=== PATIENT | female | born 1970 | race Caucasian/White ===

== ENCOUNTER 2016-06-12 12:48 | Emergency (ER) | payer BC, OTHER ==
[2016-06-12 14:20] VITALS: BP 156/78
[2016-06-12] MEDS ORDERED: DIPHTH,PERTUSS(ACELL),TET VAC 0.5 ML VIAL IM ONE ×2 (15:23→15:36)
--- NOTE | 2016-06-12 15:53 | ERNOTE ---
Medical Problem HPI - Narrative Date of Service: 06/12/16 - General Chief Complaint: Laceration Source: patient Exam Limitations: no limitations - Immun/Allergies/Home Medications Immunizations: IMMUNIZATION HX Immunizations Up to Date No History of Influenza Vaccine No Hx Pneumococcal Vaccination No Allergies/Adverse Reactions: Allergies Sulfa (Sulfonamide Antibiotics) Allergy (Mild, Verified 05/11/15 21:15) Hives Home Medications: HOME MEDICATIONS Levothyroxine Sodium [Synthroid] 75 mcg PO DAILY 07/13/14 [Last Taken Unknown] ALPRAZolam [Xanax] 0.5 mg PO Q8H PRN 04/19/15 [Last Taken Unknown] Minocycline HCl [Minocin] 100 mg PO Q12H PRN 04/19/15 [Last Taken Unknown] Multivitamins [Multivitamin Maggie] 1 cap PO DAILY 04/19/15 [Last Taken Unknown] Ibuprofen [Motrin] 600 mg PO Q6H PRN 05/11/15 [Last Taken Unknown] - History of Present History Narrative: Pt. comes in with L ring finger tip laceration that she obtained while making dinner yesterday. Pt. states that the bleeding stopped right away but if she bumps it it will start bleeding again. Pt. denies any numbness or tingling and knows that it has been more than ten years since her last tetanus. Review of Systems - Review of Systems Constitutional: Present: no symptoms reported EYE: Present: no symptoms reported ENT: Present: no symptoms reported Respiratory: Present: no symptoms reported. Absent: shortness of breath, cough , wheezing Cardiology: Present: no symptoms reported. Absent: chest pain, palpitations, edema Gastrointestinal/Abdominal: Present: no symptoms reported Genitourinary: Present: no symptoms reported Musculoskeletal: Present: no symptoms reported Skin: Present: other - laceration L ring fingertip Neurological: Present: no symptoms reported All Other Systems: All systems neg except as marked - Patient's Past Medical History Patient History - Medical: Anxiety, Hypothyroidism Patient History - Cancer: No Hx of Cancer Patient History - Surgical Procedures: Cholecystectomy, Colonoscopy, , D & C, EGD, T & A, Other - Family History Mother Family History - Medical: Seizures Family History - Cardiac/Respiratory: Hypertension Father Family History - Medical: Diabetes Type 2 Family History - Cardiac/Respiratory: Hypertension - Social History Living Situations: home Smoking Status: Never smoker Alcohol Use: none Drug Use: none Physical Exam - Physical Exam General Appearance: Present: wd/wn, alert, no apparent distress Eye Exam: Normal inspection: bilateral, PERRL: bilateral, EOMI: bilateral Neck: Present: normal inspection Respiratory: Present: no respiratory distress, normal breath sounds, no accessory muscle use, chest nontender, lungs clear Cardiovascular/Chest: Present: regular rate, rhythm, no murmur, normal peripheral pulses Back Exam: Present: normal inspection Extremity Exam: Present: non-tender, no edema, normal range of motion, other - 3mm in diameter round full thikness laceration with 100% granulation tissue ED Progress - Date and Time Seen: Date and Time: 06/13/16 14:04 Since no closure is necessary to promote quick tissue healing and decrease microbial load will have pt. dress with xeroform until hard granulation web formed. - Vital Signs Patient's Vital Signs:: I have reviewed the patient's vital signs. Vital Signs: Vital Signs 06/12/16 14:09 Temperature 36.7 C Pulse Rate 66 Respiratory 18 Rate Blood Pressure 156/78 O2 Sat by Pulse 98 Oximetry - Progress/Reassessment Chief Complaint: Laceration Progress:: Unchanged Departure - Departure Clinical Impression: Laceration Disposition: Home self-care Condition: Good Instructions: Laceration Care, Adult, [id number] Additional Instructions: Please use xeroform gauze for dressing changes over the next two days then switch to neosporin and regular bandage. Please keep clean and dry. Referrals: Shreya Zarco MD [Primary Care Provider] -
== END 2016-06-12 16:12 | disposition home or self-care (01) ==
LOC: ER 12:48
DX: S61.215A Laceration without foreign body of left ring finger without damage to nail, initial encounter (principal); Z90.49 Acquired absence of other specified parts of digestive tract; E03.9 Hypothyroidism, unspecified; F41.1 Generalized anxiety disorder; Z23 Encounter for immunization; Y93.G9 Activity, other involving cooking and grilling

== ENCOUNTER 2017-02-26 00:28 | Emergency (ER) | payer BC, OTHER ==
[2017-02-26] MEDS ORDERED: METHYLPREDNISOLONE SOD SUCC/PF 125 MG/2 ML VIAL IV ONE (00:35)
[2017-02-26] MEDS ORDERED: diphenhydrAMINE HCL 50 MG/ML VIAL IV ONE (00:35)
[2017-02-26] MEDS ORDERED: FAMOTIDINE 10 MG/ML VIAL IV ONE (00:35)
--- NOTE | 2017-02-26 00:42 | ERNOTE ---
Allergy Symptoms - ER Presenting Symptoms: face swelling - / tongue swelling, skin rash, itching Time Seen by Provider: 02/26/17 00:35 Source: patient Exam Limitations: no limitations Immunizations: IMMUNIZATION HX Immunizations Up to Date No History of Influenza Vaccine No Hx Pneumococcal Vaccination No Allergies/Adverse Reactions: Allergies Sulfa (Sulfonamide Antibiotics) Allergy (Mild, Verified 02/26/17 00:31) Hives Home Medications: HOME MEDICATIONS Levothyroxine Sodium [Synthroid] 75 mcg PO DAILY 07/13/14 [Last Taken Unknown] Minocycline HCl [Minocin] 100 mg PO Q12H PRN 04/19/15 [Last Taken Unknown] Multivitamins [Multivitamin Maggie] 1 cap PO DAILY 04/19/15 [Last Taken Unknown] Ibuprofen [Motrin] 600 mg PO Q6H PRN 05/11/15 [Last Taken Unknown] Methylprednisolone [Medrol Dosepak] 4 mg PO DAILY #21 tab.ds.pk 02/26/17 [Last Taken Unknown] - History of Present Illness Narrative: Pt states she went to bed as normal and woke up around 23:00 with itching. She continued to worsen with swelling of her lips and hives and presented to the ED. Timing: Present: getting worse Location skin rash/itching: Present: facial, trunk, extremities, "hives" Location swelling: Present: lip(s) Severity shortness of breath: Present: mild Identified cause?: No Exposure: Present: antibiotic - Minocycline Similar symptoms previously: No Review of Systems - Review of Systems Constitutional: Absent: recent illness, fever, chills EYE: Present: no symptoms reported ENT: Present: throat swelling Respiratory: Present: shortness of breath - mild Cardiology: Present: no symptoms reported Gastrointestinal/Abdominal: Present: no symptoms reported Genitourinary: Present: no symptoms reported Musculoskeletal: Present: no symptoms reported Skin: Present: rash Neurological: Present: no symptoms reported Endocrine: Present: no symptoms reported Hematologic/Lymphatic: Present: no symptoms reported Psych: Present: no symptoms reported - Patient's Past Medical History Patient History - Medical: Anxiety, Hypothyroidism Patient History - Cardiac/Respiratory: No pertinent hx Patient History - Cancer: No Hx of Cancer Patient History - Surgical Procedures: Cholecystectomy, Colonoscopy, , D & C, EGD, T & A, Other Patient History - Other: None LMP (Calendar): 04/17/15 - Family History Mother Family History - Medical: Seizures Family History - Cardiac/Respiratory: Hypertension Father Family History - Medical: Diabetes Type 2 Family History - Cardiac/Respiratory: Hypertension - Social History Living Situations: home Abuse History: No History of abuse Psych History: Hx of Anxiety, Current tx/ever been on anti-depressants or anti- anxiety meds Alcohol Use: none Drug Use: none - Immunizations Immunizations Up to Date: No Hx Pneumococcal Vaccination: No History of Influenza Vaccine: No Physical Exam - Physical Exam General Appearance: Present: wd/wn, alert, mild distress, anxious Head Exam: Present: normal inspection, no evidence of injury Eye Exam: Normal inspection: bilateral, PERRL: bilateral Ears, Nose, Throat: Present: normal pharynx, other - lower lip swelling Neck: Present: normal inspection, nontender Respiratory: Present: no respiratory distress, no accessory muscle use, other - rough lung sounds throughout without wheezing Cardiovascular/Chest: Present: regular rate, rhythm, no murmur, normal peripheral pulses Extremity Exam: Present: non-tender, normal range of motion, no edema Neurological Exam: Present: alert, oriented, normal mood/affect Skin Exam: Present: other - hives on abdomen arms and legs, flushing and papules on face Lymphatic Exam: Present: no adenopathy ED Progress - Progress/Reassessment Progress:: Improved Progress Note-Subjective: 02/26/17 01:02 Pt states she is doing better. Tongue feels smaller. PE: hives on arms resolved papules reduced but remain. Hives on abdomen are less severe but persist. 02/26/17 02:00 Feeling much better. A little thickness to her tongue and that is all that remains. Discussed benadryl and drowsyness. Pt feels she is not drowsy at this time. Departure Clinical Impression: Allergic reaction, urticaria - Departure Disposition: Home self-care Condition: Good Instructions: Hives, [id number] Additional Instructions: Take an antihistamine regularly for 3-4 days jackeline, zyrtec or benadryl. Take the prescription as directed. Return to ER if symptoms return. Ask your doctor for a replacement antibiotic. Referrals: Shreya Zarco MD [Primary Care Provider] - Prescriptions: Methylprednisolone [Medrol Dosepak] 4 mg PO DAILY #21 tab.ds.pk
[2017-02-26 02:20] VITALS: BP 142/73
== END 2017-02-26 02:15 | disposition home or self-care (01) ==
LOC: ER 00:28
DX: L50.0 Allergic urticaria (principal)